=== PATIENT | male | born 1995 | race Caucasian/White ===

== ENCOUNTER 2023-01-09 20:35 | Emergency (ER) | payer BC, OTHER ==
[2023-01-09] MEDS ORDERED: Diphtheria,Pertussis(Acell),Tetanus Vaccine 0.5 ML Syringe IM ONE (22:14)
[2023-01-09] MEDS ORDERED: Lidocaine 1% 10 ML MDV INJECT ONE (22:15)
== END 2023-01-09 22:58 | disposition home or self-care (01) ==
LOC: JD.ED 20:35
DX: S61.412A Laceration without foreign body of left hand, initial encounter (principal); Z23 Encounter for immunization; W25.XXXA Contact with sharp glass, initial encounter
CPT/HCPCS: 12001; 90471; 90715; 99282-25